=== PATIENT | male | born 1995 | race Caucasian/White ===

== ENCOUNTER 2017-08-01 13:05 | Emergency (ER) | payer BC ==
--- NOTE | 2017-08-01 13:13 | PDOC ---
History of Present Illness - General Chief Complaint: Poison Cook,Poison Erwin Exposure Stated Complaint: POISON ERWIN LEFT EYE Time Seen by Provider: 08/01/17 13:11 Past History - Past Medical History Allergies/Adverse Reactions: Allergies Allergy/AdvReac Type Severity Reaction Status Date / Time shellfish derived Allergy Hives Verified 08/01/17 13:06 Home Medications: Ambulatory Orders Albuterol Sulfate Inhaler - [Ventolin HFA Inhaler -] 1 - 2 inh PO PRN PRN Fexofenadine HCl [Shyla Allergy] 60 mg PO Q12H #20 tablet 08/01/17 - Immunization History Immunization Up to Date: Yes - Suicide/Smoking/Psychosocial Hx Smoking History: Never smoked Have you smoked in the past 12 months: No Hx Alcohol Use: Yes (SOCIAL) Substance Use Type: Marijuana *DC/Admit/Observation/Transfer Diagnosis at time of Disposition: Poison erwin - Discharge Dispostion Disposition: HOME Condition at time of disposition: Stable Admit: No - Prescriptions Prescriptions: Fexofenadine HCl [Shyla Allergy] 60 mg PO Q12H #20 tablet - Referrals Referrals: Brunilda Tom [Staff Physician] - - Patient Instructions Printed Discharge Instructions: DI for Poison Erwin Allergy
[2017-08-01 13:14] VITALS: BP 116/76; PULSE 67; TEMP 98.9; BMI 26.2
[2017-08-01] MEDS ORDERED: DEXAMETHASONE SOD PHOSPHATE 4 MG/1 ML VIAL IM ONE (13:35)
[2017-08-01] MEDS ORDERED: DEXAMETHASONE SOD PHOSPHATE 4 MG/1 ML VIAL ONE (13:37)
== END 2017-08-01 13:45 | disposition home or self-care (01) ==
LOC: FER 13:05
PROC: 3E023GC Introduction of Other Therapeutic Substance into Muscle, Percutaneous Approach (ICD-10-PCS; principal; 2017-08-01)
DX: L23.7 Allergic contact dermatitis due to plants, except food (principal)
CPT/HCPCS: 99281-25

== ENCOUNTER 2017-08-15 16:52 | Emergency (ER) | payer BC ==
[2017-08-15 16:57] VITALS: BP 116/69; PULSE 65; TEMP 98.4; BMI 26.9
[2017-08-15] MEDS ORDERED: DIPHTH,PERTUSS(ACELL),TET 0.5 ML DISP.SYRIN IM ONE (17:01)
--- NOTE | 2017-08-15 17:06 | PDOC ---
History of Present Illness - General History Source: Patient Exam Limitations: No Limitations - History of Present Illness Initial Comments: 08/15/17 17:07 Chief Complaint: left foot puncture wound History of Present Illness: 22 y/o M with a h/o mild asthma presents to the ED with a left foot puncture wound. Patient was climbing a fence and slipped. His foot landed on a piece of the metal fence sticking out. He reports initial bleeding, but states the bleeding stopped just before arriving. No fever, chills. Denies any other complaints. Review of Systems: CONSTITUTIONAL: Absent: fever, chills, fatigue MUSCULOSKELETAL: Absent: back pain, arthralgia, myalgia SKIN: (+) left foot puncture wound. Absent: rash Physical Exam confined to left foot: 5 mm puncture wound of the plantar aspect of the foot midsole. Wound appears to be clean, no foreign body palpable. Pulses in foot are intact, no distal sensory deficit, capillary refill intact in all 5 digits. No motor or tendon deficits. <Sangeeta Robles - Last Filed: 08/15/17 17:07> <Rich Esquivel - Last Filed: 08/15/17 17:25> - General Chief Complaint: Pain, Acute Stated Complaint: punctured my foot Time Seen by Provider: 08/15/17 17:01 Past History <Sangeeta Robles - Last Filed: 08/15/17 17:07> - Past Medical History Asthma: Yes - Immunization History Immunization Up to Date: Yes - Suicide/Smoking/Psychosocial Hx Smoking History: Never smoked Have you smoked in the past 12 months: No Hx Alcohol Use: Yes Drug/Substance Use Hx: No Substance Use Type: Marijuana <Rich Esquivel - Last Filed: 08/15/17 17:25> - Past Medical History Allergies/Adverse Reactions: Allergies Allergy/AdvReac Type Severity Reaction Status Date / Time shellfish derived Allergy Hives Verified 08/15/17 16:53 Home Medications: Ambulatory Orders Albuterol Sulfate Inhaler - [Ventolin HFA Inhaler -] 1 - 2 inh PO PRN PRN *Physical Exam - Vital Signs Last Vital Signs Temp Pulse Resp BP Pulse Ox 98.4 F 65 16 116/69 98 08/15/17 16:52 08/15/17 16:52 08/15/17 16:52 08/15/17 16:52 08/15/17 16:52 <Sangeeta Robles - Last Filed: 08/15/17 17:07> - Vital Signs Last Vital Signs Temp Pulse Resp BP Pulse Ox 98.4 F 65 16 116/69 98 08/15/17 16:52 08/15/17 16:52 08/15/17 16:52 08/15/17 16:52 08/15/17 16:52 <Rich Esquivel - Last Filed: 08/15/17 17:25> ED Treatment Course - Medications Given in the ED: ED Medications Discontinued Medications Generic Name Dose Route Start Last Admin Trade Name Doroteo PRN Reason Stop Dose Admin Diphtheria/Tetanus/Acell Pertussis 0.5 ml 08/15/17 17:01 08/15/17 17:06 Boostrix - IM 08/15/17 17:02 0.5 ml ONCE ONE Administration <Sangeeta Robles - Last Filed: 08/15/17 17:07> - RADIOLOGY Radiology Studies Ordered: Category Date Time Status FOOT-LEFT [RAD] Stat Radiology 08/15/17 17:02 Ordered <Rich Esquivel - Last Filed: 08/15/17 17:25> Medical Decision Making - Medical Decision Making 08/15/17 17:04 Patient with a puncture wound of the plantar aspect of the left foot. Sustained on a metal fence. No sensory or motor or circulatory deficits to the foot. X-ray negative. No foreign body. Soaked in sterile saline with Betadine. Scrubbed and explored, appears to be superficial. X-ray obtained foreign body. Dressed and bandaged. Rest and elevation for 48 hours recommended to minimize the chance of infection. Recheck if sign of infection develops, including increased pain, redness, swelling, or drainage from the wound. Adequately ambulatory and in no significant pain or other distress upon discharge to follow-up as directed. 08/15/17 17:23 <Rich Esquivel - Last Filed: 08/15/17 17:25> *DC/Admit/Observation/Transfer - Attestations Scribe Attestion: 08/15/17 17:08 Documentation prepared by Sangeeta Robles, acting as medical sales representative for Rich Waterman MD. <Sangeeta Robles - Last Filed: 08/15/17 17:07> - Discharge Dispostion Admit: No <Rich Esquivel - Last Filed: 08/15/17 17:25> Diagnosis at time of Disposition: Puncture wound of foot Qualifiers: Encounter type: initial encounter Laterality: left Qualified Code(s): S91.332A - Puncture wound without foreign body, left foot, initial encounter; S91.332A - Puncture wound without foreign body, left foot, initial encounter - Discharge Dispostion Disposition: HOME Condition at time of disposition: Improved - Referrals Referrals: Zachary Holly MD [Staff Physician] - - Patient Instructions Printed Discharge Instructions: DI for Puncture Wound Additional Instructions: Rest and elevate the foot for 48 hours to minimize the chance of infection Clean and dress the wound daily Return to the ER if there is any sign of infection, or follow-up with orthopedist as directed.
--- NOTE | 2017-08-16 08:58 | PDOC ---
Patient Follow-up (Call Back) - Post ED Follow - Up Condition at time of discharge: Improved Disposition at time of original discharge: HOME Reason for Call Back: Radiology - Disposition Rx Needed: No Additional Instructions/Notes: Notified by Dr. Alvarado that there was a possible FB nnoted on the xray vs. artifact. CAlled the pt at the number listed on demographics and spoke to him, states his wound is in the arch of his foot, the possible fb was noted between 1st and 2nd toe on oblique projection - no where near the pts wound. suspect artifact. will hvae the pt fu with his pmd in a few days return precautions were discussed
== END 2017-08-15 17:45 | disposition home or self-care (01) ==
LOC: FER 16:52
PROC: 3E0234Z Introduction of Serum, Toxoid and Vaccine into Muscle, Percutaneous Approach (ICD-10-PCS; principal; 2017-08-15)
DX: S91.332A Puncture wound without foreign body, left foot, initial encounter (principal); W22.09XA Striking against other stationary object, initial encounter; Y93.89 Activity, other specified; Y92.9 Unspecified place or not applicable
CPT/HCPCS: 73630-TC-LT; 90715; 99282-25

== ENCOUNTER 2018-08-29 12:40 | Emergency (ER) | payer BC ==
[2018-08-29 12:54] VITALS: BP 118/66; PULSE 70; TEMP 98.5; BMI 26.2
--- NOTE | 2018-08-29 13:10 | PDOC ---
History of Present Illness - General Chief Complaint: Injury Stated Complaint: RIGHT FOOT INJURY Time Seen by Provider: 08/29/18 12:44 - History of Present Illness Initial Comments: 08/29/18 13:05 23 M with no PMH presents to ED after dropping a weight on his foot. Pt states he was doing "power cleans" and as he lifted the weight, his arm gave out and dropped the weight on the floor. He states that the right side of the barbell fell onto his R big toe. Pt was wearing shoes at the time. He states that the toe became swollen. He states that he has been able to bear weight and walk on his foot, though he does have pain. Past History - Past Medical History Allergies/Adverse Reactions: Allergies Allergy/AdvReac Type Severity Reaction Status Date / Time shellfish derived Allergy Hives Verified 08/29/18 12:48 Home Medications: Ambulatory Orders Lisdexamfetamine Dimesylate [Vyvanse] 30 mg PO HS 08/29/18 Lisdexamfetamine Dimesylate [Vyvanse] 70 mg PO DAILY 08/29/18 Asthma: Yes COPD: No - Immunization History Immunization Up to Date: Yes - Suicide/Smoking/Psychosocial Hx Smoking History: Never smoked Have you smoked in the past 12 months: No Information on smoking cessation initiated: Yes 'Breaking Loose' booklet given: 08/29/18 Hx Alcohol Use: Yes Drug/Substance Use Hx: Yes (MARIJUANA) Substance Use Type: Marijuana Review of Systems - Review of Systems Comments:: 08/29/18 13:08 "GENERAL/CONSTITUTIONAL: No fever or chills. No weakness. HEAD, EYES, EARS, NOSE AND THROAT: No change in vision. No ear pain or discharge. No sore throat. CARDIOVASCULAR: No chest pain, no shortness of breath, no loss of consciousness RESPIRATORY: No cough, wheezing, or hemoptysis. GASTROINTESTINAL: No nausea, vomiting, diarrhea or constipation. GENITOURINARY: No dysuria, frequency, or change in urination. MUSCULOSKELETAL: + R 1st toe pain SKIN: No rash NEUROLOGIC: No vertigo, no change in strength/sensation. ENDOCRINE: No increased thirst. No abnormal weight change. HEMATOLOGIC/LYMPHATIC: No anemia, easy bleeding, or history of blood clots. ALLERGIC/IMMUNOLOGIC: No hives or skin allergy. *Physical Exam - Vital Signs Last Vital Signs Temp Pulse Resp BP Pulse Ox 98.5 F 70 15 118/66 99 08/29/18 12:41 08/29/18 12:41 08/29/18 12:41 08/29/18 12:41 08/29/18 12:41 - Physical Exam Comments: 08/29/18 13:09 "GENERAL: Awake, alert, and fully oriented, in no acute distress. HEAD: No signs of trauma EYES: PERRLA, EOMI, sclera anicteric, conjunctiva clear ENT: Auricles normal inspection, hearing grossly normal, nares patent, oropharynx clear without exudates. Moist mucosa NECK: Nontender, no stepoffs, Normal ROM, supple, no lymphadenopathy, JVD, or masses LUNGS: Breath sounds equal, clear to auscultation bilaterally. No wheezes, and no crackles HEART: Regular rate and rhythm, normal S1 and S2, no murmurs, rubs or gallops ABDOMEN: Soft, nontender, normoactive bowel sounds. No guarding, no rebound. No masses EXTREMITIES: + RLE with mild tenderness over 1st middle phalanx, no deformity, neurovascularly intact NEUROLOGICAL: Cranial nerves II through XII intact. 5/5 strength and sensation in all extremities, Normal speech, normal gait, normal cerebellar function SKIN: Warm, Dry, normal turgor, no rashes or lesions noted. ED Treatment Course - RADIOLOGY Radiology Studies Ordered: Category Date Time Status FOOT-RIGHT [RAD] Stat Radiology 08/29/18 12:59 Ordered Medical Decision Making - Medical Decision Making 08/29/18 13:10 23 M with R 1st toe pain after dropping barbell on it. - XR R foot 08/29/18 13:35 XR negative for fx. Pt is well appearing, with normal vitals. Clinically stable for DC at this time. I discussed the physical exam findings, ancillary test results and final diagnoses with the patient. I answered all of the patient's questions. The patient was satisfied with the care received and felt comfortable with the discharge plan and treatment plan. The patient agrees to follow up with the primary care physician within 24-72 hours. *DC/Admit/Observation/Transfer Diagnosis at time of Disposition: Foot pain - Discharge Dispostion Disposition: HOME Condition at time of disposition: Good - Referrals Referrals: Zachary Holly MD [Staff Physician] - Venkatesh Romero MD [Staff Physician] - - Patient Instructions Printed Discharge Instructions: DI for Foot Pain Additional Instructions: Avoid bearing any weight on your right foot until the pain and swelling have resolved. Keep your foot elevated and apply ice to help reduce the swelling. If you experience worsening pain, swelling, or any other concerning symptoms, return to the ER immediately. If you continue to have pain after 48 hours, you should follow up with an orthopedist for further evaluation. Call the number provided to make an appointment. - Post Discharge Activity - Attestations Physician Attestion: 08/29/18 13:27 I, Dr. Zachary Barrow MD, attest that this document has been prepared under my direction and personally reviewed by me in its entirety. I further attest, that it accurately reflects all work, treatment, procedures and medical decision -making performed by me.
== END 2018-08-29 13:38 | disposition home or self-care (01) ==
LOC: FER 12:40
DX: M79.674 Pain in right toe(s) (principal); W20.8XXA Other cause of strike by thrown, projected or falling object, initial encounter; Y93.89 Activity, other specified; Y92.39 Other specified sports and athletic area as the place of occurrence of the external cause; J45.909 Unspecified asthma, uncomplicated
CPT/HCPCS: 73630-TC-RT-FY; 99281-25

== ENCOUNTER 2019-11-11 17:17 | Emergency (ER) | payer SELFPAY ==
[2019-11-11 17:37] VITALS: BP 119/67; PULSE 71; TEMP 97.8; BMI 26.2
[2019-11-11 18:26] LABS: BASO % 0.5 % (0-2.0); EOS % 2.5 % (0-4.5); HEMATOCRIT 43.5 % (35.4-49); HEMOGLOBIN 15.1 GM/dL (11.7-16.9); LYMPH % 23.6 % (8-40); MCHC 34.6 g/dl (32.0-35.9); MEAN CELL VOLUME 86.6 fl (80-96); MEAN PLT VOLUME 7.7 fl (7.5-11.1); MONO % 8.5 % (3.8-10.2); NEUT % 64.9 % (42.8-82.8); PLATELET COUNT 270 K/MM3 (134-434); RBC 5.02 M/mm3 (4.00-5.60); WHITE BLOOD COUNT 8.1 K/mm3 (4.0-10.0)
[2019-11-11 19:06] LABS: BILIRUBIN,TOTAL 0.6 mg/dL (0.2-1); CALCIUM 8.9 mg/dL (8.5-10.1); CREATININE 1.1 mg/dL (0.55-1.3); MAGNESIUM 2.4 mg/dL (1.8-2.4); POTASSIUM 4.3 mmol/L (3.5-5.1); TOT PROT 7.4 g/dl (6.4-8.2)
--- NOTE | 2019-11-11 22:08 | PDOC ---
History of Present Illness - General Chief Complaint: Alcohol intoxication Stated Complaint: DETOX Time Seen by Provider: 11/11/19 17:36 Past History - Past Medical History Allergies/Adverse Reactions: Allergies Allergy/AdvReac Type Severity Reaction Status Date / Time shellfish derived Allergy Hives Verified 11/11/19 17:32 Home Medications: Ambulatory Orders Lisdexamfetamine Dimesylate [Vyvanse] 30 mg PO HS 08/29/18 Lisdexamfetamine Dimesylate [Vyvanse] 70 mg PO DAILY 08/29/18 Asthma: Yes COPD: No - Immunization History Immunization Up to Date: Yes - Psycho Social/Smoking Cessation Hx Smoking History: Never smoked Have you smoked in the past 12 months: No 'Breaking Loose' booklet given: 08/29/18 Hx Alcohol Use: No Drug/Substance Use Hx: No Substance Use Type: Marijuana *Physical Exam - Vital Signs Last Vital Signs Temp Pulse Resp BP Pulse Ox 97.8 F 71 17 119/67 100 11/11/19 17:33 11/11/19 17:33 11/11/19 17:33 11/11/19 17:33 11/11/19 17:33 ED Treatment Course - LABORATORY CBC & Chemistry Diagram: 11/11/19 17:43 11/11/19 17:43 - ADDITIONAL ORDERS Additional order review: Laboratory Results 11/11/19 11/11/19 17:43 17:43 Sodium 140 Potassium 4.3 Chloride 108 H Carbon Dioxide 29 Anion Gap 3 L BUN 17.0 Creatinine 1.1 Est GFR (CKD-EPI)AfAm 106.81 Est GFR (CKD-EPI)NonAf 92.16 Random Glucose 85 Calcium 8.9 Magnesium 2.4 Total Bilirubin 0.6 AST 29 ALT 34 Alkaline Phosphatase 63 Total Protein 7.4 Albumin 4.0 Alcohol, Quantitative < 3 11/11/19 17:43 RBC 5.02 MCV 86.6 MCHC 34.6 RDW 13.0 MPV 7.7 Neutrophils % 64.9 Lymphocytes % 23.6 Monocytes % 8.5 Eosinophils % 2.5 Basophils % 0.5 Medical Decision Making - Medical Decision Making 11/11/19 22:07 Multiple attempts to find patient have been unsuccessful. As were unable to find the patient is likely he eloped. Discharge - Discharge Information Problems reviewed: Yes Clinical Impression/Diagnosis: Eloped from emergency department Disposition: ELOPED - Follow up/Referral - Patient Discharge Instructions - Post Discharge Activity
== END 2019-11-11 22:15 | disposition left against medical advice (07) ==
LOC: JER 17:17
DX: Z53.21 Procedure and treatment not carried out due to patient leaving prior to being seen by health care provider (principal)
CPT/HCPCS: 36415; 80053; 80307; 83735; 85025; 99281-25